=== PATIENT | female | born 1965 | race Caucasian/White ===

== ENCOUNTER 2019-10-07 15:12 | Emergency (ER) | payer OTHER ==
[~2019-10-07] VITALS: Ht 160 cm; Wt 97.5 kg
[~2019-10-07 15:12] MED LIST: ACETAMINOPHEN-1 EAC1 PO; ADDERALL 20 MG20 MG PO; AMOXICILLIN 50500 M1 PO; BACTRIM DS TAB1 EACH PO; CARAFATE 1 GM TA1 G1 PO; CLEOCIN HCL150 MG PO; HYDROCODONE-AP1 EAC6 PO; NAPROSYN500 MG PO; NEURONTIN 300300 M1 PO; NOHOMEMEDICATIONS; NORCO 5-325 TA1 EACH PO; OMEPRAZOLE40 MG PO; PREDNISONE 10 M10 M1 PO; PROAIR HFA8.5 GM INH; PROAIR RESPICL90 MCG INH; XANAX 0.5 MG0.5 MG PO; ZOFRAN 4 MG ORAL4 MG PO
[2019-10-07 15:59] LABS: INFLUENZA A ANTIGEN Negative (Negative); INFLUENZA B ANTIGEN Negative (Negative)
[2019-10-07] MEDS ORDERED: AUGMENTIN 875-1 EACH PO (17:32)
[2019-10-07] MEDS ORDERED: ONDANSETRON HCL4 M2 PO (17:32)
[2019-10-07] MEDS ORDERED: MEDROLDOSEPACK PO (17:32)
[2019-10-07 17:47] VITALS: BP 128/78
== END 2019-10-07 17:48 | disposition home or self-care (01) ==
LOC: M.ERS 15:12
PROVIDERS: Family Medicine
DX: J20.9 Acute bronchitis, unspecified (principal); J32.9 Chronic sinusitis, unspecified; F41.9 Anxiety disorder, unspecified; F90.9 Attention-deficit hyperactivity disorder, unspecified type; Z87.442 Personal history of urinary calculi; Z98.890 Other specified postprocedural states